=== PATIENT | male | born 1955 | race Caucasian/White ===

== ENCOUNTER 2021-04-25 09:06 | Emergency (ER) | payer BC, OTHER ==
[2021-04-25] MEDS ORDERED: Aspirin 81 MG Tab.Chew PO ONE (09:30)
[2021-04-25] MEDS ORDERED: Aspirin 81 MG Tab.Chew ONE (09:33)
[2021-04-25 09:59] LABS: ANION GAP 11.4 mEq/L (7-13); CHLORIDE,CL 98 mmol/L (98-107); SODIUM,NA 133 mmol/L (136-145)
[2021-04-25] MEDS ORDERED: Nitroglycerin 0.4 MG Tab.SL SL ONE (10:03)
--- NOTE | 2021-04-25 10:10 | EDM.PDOC ---
ED HPI GENERAL MEDICAL PROBLEM - General Chief Complaint: Chest Pain Stated Complaint: COVID + CHEST PAIN STINT PUT IN ON 13TH Time Seen by Provider: 04/25/21 09:45 Source of Information: Reports: Patient History Limitations: Reports: No Limitations - History of Present Illness INITIAL COMMENTS - FREE TEXT/NARRATIVE: This 66 yo male patient repots to the ED with chest pain that started this morning at about 0800. The patient describes his symptoms as a burning in the middle of his chest. The patient reports he tested positive for COVID on 04/21/21 and got monoclonal antibodies on 04/22/21. The patient also reports he had cardiac stents (2) placed by Dr. Mederos in [place] on 04/16/21. The patient did not take his prescribed nitro today due to coming to the ED. The patient reports he did take 1 baby aspirin today while at home. The patient also reports some mild tingling in his left arm. The patient reports he has eaten an apple today, but nothing else. Onset: Today Onset Date: 04/25/21 Onset Time: 08:00 Duration: Constant Location: Reports: Chest, Upper Extremity, Left Quality: Reports: Burning Severity: Moderate (6/10) Improves with: Reports: None Worsens with: Reports: None Context: Reports: Other Associated Symptoms: Reports: Chest Pain Treatments SVP OF DIGITAL: Reports: Aspirin (81 mg while at home) Mid-Sternal Chest Pain Score (Numeric/FACES): 6 - Related Data Allergies Allergy/AdvReac Type Severity Reaction Status Date / Time No Known Allergies Allergy Verified 04/22/21 11:31 Home Meds: Home Meds Acetaminophen 650 mg PO Q6HR PRN 10/15/17 [History] Nitroglycerin 0.4 mg PO ASDIRECTED PRN 10/15/17 [History] Aspirin [Aspirin EC] 81 mg PO DAILY 04/22/21 [History] Clopidogrel [Plavix] 75 mg PO DAILY 04/22/21 [History] Isosorbide Mononitrate [Imdur] 30 mg PO DAILY 04/22/21 [History] Metoprolol Succinate [Toprol Xl] 50 mg PO DAILY 04/22/21 [History] atorvaSTATin [Lipitor] 40 mg PO DAILY 04/22/21 [History] Past Medical History HEENT History: Reports: Hard of Hearing, Impaired Vision, Other (See Below) Cardiovascular History: Reports: High Cholesterol, Hypertension, AR, SOB on Exer tion, Stents Respiratory History: Reports: COPD, SOB Gastrointestinal History: Reports: None Genitourinary History: Reports: None Musculoskeletal History: Reports: Arthritis, Back Pain, Chronic, Fracture, Osteoarthritis Other Musculoskeletal History: fx right middle finger Neurological History: Reports: Concussion Psychiatric History: Reports: None Endocrine/Metabolic History: Reports: None Hematologic History: Reports: None Immunologic History: Reports: None Oncologic (Cancer) History: Reports: None Dermatologic History: Reports: None - Infectious Disease History Infectious Disease History: Reports: Novel Coronavirus - Past Surgical History Head Surgeries/Procedures: Reports: None HEENT Surgical History: Reports: Naso-Sinus Surgery Cardiovascular Surgical History: Reports: Coronary Artery Stent, Vascular Surgery Respiratory Surgical History: Reports: None GI Surgical History: Reports: Colonoscopy, EGD Male Surgical History: Reports: None Endocrine Surgical History: Reports: None Neurological Surgical History: Reports: None Musculoskeletal Surgical History: Reports: None Oncologic Surgical History: Reports: None Social & Family History - Family History Family Medical History: No Pertinent Family History - Tobacco Use Tobacco Use Status *Q: Unknown Ever Used Tobacco - Caffeine Use Caffeine Use: Reports: Coffee - Recreational Drug Use Recreational Drug Use: No ED ROS GENERAL - Review of Systems Review Of Systems: Comprehensive ROS is negative, except as noted in HPI. ED EXAM, GENERAL - Physical Exam Exam: See Below Exam Limited By: No Limitations General Appearance: Alert, WD/WN, Moderate Distress Eye Exam: Bilateral Eye: EOMI, Normal Inspection, PERRL Ears: Normal External Exam, Other (Bilateral hearing aids) Nose: Normal Inspection, Normal Mucosa, No Blood Throat/Mouth: Normal Inspection, Normal Lips, Normal Teeth, Normal Gums, Normal Oropharynx, Normal Voice, No Airway Compromise Head: Atraumatic, Normocephalic Neck: Normal Inspection, Supple, Non-Tender, Full Range of Motion Respiratory/Chest: No Respiratory Distress, Lungs Clear, Normal Breath Sounds, No Accessory Muscle Use, Chest Non-Tender Cardiovascular: Normal Peripheral Pulses, Regular Rate, Rhythm, No Edema, No Gallop, No JVD, No Murmur, No Rub GI/Abdominal: Normal Bowel Sounds, Soft, Non-Tender, No Organomegaly, No Distention, No Abnormal Bruit, No Mass (Male) Exam: Deferred Rectal (Males) Exam: Deferred Back Exam: Normal Inspection, Full Range of Motion, NT Extremities: Normal Inspection, Normal Range of Motion, Non-Tender, Normal Capillary Refill, No Pedal Edema Neurological: Alert, Oriented, CN II-XII Intact, Normal Cognition, Normal Gait, Normal Reflexes, No Motor/Sensory Deficits Psychiatric: Normal Affect, Normal Mood Skin Exam: Warm, Dry, Intact, Normal Color, No Rash Lymphatic: No Adenopathy #1 Interpretation EKG Date: 04/25/21 Time: 09:25 Rhythm: NSR Rate (Beats/Min): 60 [place]: Normal P-Wave: Present QRS: Normal QT: Normal Course - Vital Signs Last Recorded V/S: Last Vital Signs Temp 96.4 F L 04/25/21 09:50 Pulse 57 L 04/25/21 09:50 Resp 15 04/25/21 09:50 BP 133/86 04/25/21 10:10 Pulse Ox 97 04/25/21 09:50 - Orders/Labs/Meds Orders: Active Orders 24 hr Category Date Time Status Heparin Sodium/0.45% NaCl [Heparin 25,000 Units in 1/2 Med 04/25/21 11:14 Ordered NS 500 ML] 25,000 units in 500 ml IV ONETIME Medication Orders Heparin Sodium/Sodium Chloride (Heparin 25,000 Units In 1/2 Ns 500 Ml) 25,000 units in 500 mls @ 23.079 mls/hr IV ONETIME ONE Stop: 04/26/21 08:53 Labs: Laboratory Tests 04/25/21 04/25/21 04/25/21 Range/Units 09:25 09:25 09:25 WBC 7.6 (5.0-10.0) 10^3/uL RBC 5.27 (4.6-6.2) 10^6/uL Hgb 15.5 (14.0-18.0) g/dL Hct 45.4 (40.0-54.0) % MCV 86.1 D (80-100) fL MCH 29.4 (27.0-34.0) pg MCHC 34.1 (33.0-35.0) g/dL Plt Count 280 (150-450) 10^3/uL Neut % (Auto) 75.6 H (42.2-75.2) % Lymph % (Auto) 13.2 L (20.5-50.1) % [place] % (Auto) 10.3 H (2-8) % Eos % (Auto) 0.5 L (1.0-3.0) % Baso % (Auto) 0.4 (0.0-1.0) % D-Dimer, Quantitative 666 H (0-400) ng/mL Sodium 133 L (136-145) mmol/L Potassium 3.4 L (3.5-5.1) mmol/L Chloride 98 (98-107) mmol/L Carbon Dioxide 27 (21-32) mmol/L Anion Gap 11.4 (7-13) mEq/L BUN 14 (7-18) mg/dL Creatinine 1.01 (0.70-1.30) mg/dL Est Cr Clr Drug Dosing 70.54 mL/min Estimated GFR (MDRD) > 60 BUN/Creatinine Ratio 13.9 (No establ ref range) Glucose 129 H (70-99) mg/dL Lactic Acid (0.4-2.0) mmol/L Calcium 8.5 (8.5-10.1) mg/dL Total Bilirubin 0.6 (0.2-1.0) mg/dL AST 44 H (15-37) U/L ALT 53 (16-63) U/L Alkaline Phosphatase 66 (46-116) U/L Troponin I High Sens 160 H* (<=76) pg/mL Total Protein 7.3 (6.4-8.2) g/dL Albumin 3.2 L (3.4-5.0) g/dL Globulin 4.1 Albumin/Globulin Ratio 0.78 04/25/21 04/25/21 Range/Units 09:25 10:45 WBC (5.0-10.0) 10^3/uL RBC (4.6-6.2) 10^6/uL Hgb (14.0-18.0) g/dL Hct (40.0-54.0) % MCV (80-100) fL MCH (27.0-34.0) pg MCHC (33.0-35.0) g/dL Plt Count (150-450) 10^3/uL Neut % (Auto) (42.2-75.2) % Lymph % (Auto) (20.5-50.1) % [place] % (Auto) (2-8) % Eos % (Auto) (1.0-3.0) % Baso % (Auto) (0.0-1.0) % D-Dimer, Quantitative (0-400) ng/mL Sodium (136-145) mmol/L Potassium (3.5-5.1) mmol/L Chloride (98-107) mmol/L Carbon Dioxide (21-32) mmol/L Anion Gap (7-13) mEq/L BUN (7-18) mg/dL Creatinine (0.70-1.30) mg/dL Est Cr Clr Drug Dosing mL/min Estimated GFR (MDRD) BUN/Creatinine Ratio (No establ ref range) Glucose (70-99) mg/dL Lactic Acid 1.7 (0.4-2.0) mmol/L Calcium (8.5-10.1) mg/dL Total Bilirubin (0.2-1.0) mg/dL AST (15-37) U/L ALT (16-63) U/L Alkaline Phosphatase (46-116) U/L Troponin I High Sens 999 H* (<=76) pg/mL Total Protein (6.4-8.2) g/dL Albumin (3.4-5.0) g/dL Globulin Albumin/Globulin Ratio Meds: Medications Generic Name Dose Route Start Last Admin Trade Name Freq PRN Reason Stop Dose Admin Heparin Sodium/Sodium Chloride 25,000 units in 500 mls @ 23.079 mls/hr 04/25/21 11:14 Heparin 25,000 Units In 1/2 Ns 500 Ml IV 04/26/21 08:53 ONETIME ONE 12 UNITS/KG/HR Discontinued Medications Generic Name Dose Route Start Last Admin Trade Name Freq PRN Reason Stop Dose Admin Aspirin 243 mg 04/25/21 09:30 04/25/21 09:42 Aspirin 81 Mg Tab.Chew PO 04/25/21 09:31 243 mg ONETIME ONE Administration Aspirin Confirm 04/25/21 09:33 04/25/21 09:42 Aspirin 81 Mg Tab.Chew Administered 04/25/21 09:34 Not Given Dose 243 mg .ROUTE .STK-MED ONE Heparin Sodium (Porcine) 4,000 units 04/25/21 11:13 Heparin Sodium 5,000 Units/Ml Vial IVPUSH 04/25/21 11:14 .BOLUS ONE Morphine Sulfate 2 mg 11/22/21 10:15 04/25/21 10:20 Morphine 2 Mg/Ml Syringe IVPUSH 04/25/21 10:16 2 mg ONETIME ONE Administration Nitroglycerin 0.4 mg 04/25/21 10:03 04/25/21 10:10 Nitroglycerin 0.4 Mg Tab.Sl SL 04/25/21 10:04 0.4 mg ONETIME ONE Administration - Re-Assessments/Exams Free Text/Narrative Re-Assessment/Exam: 04/25/21 11:29 Initial call was placed to [facility] in [place] at 1021. Placed on hold until 1059 when advised Cardiology would return call. Return call received at 1108. Dr. Sandoval accepted the patient at 1115 for transport to the tutorial laboratory supervisor. Departure - Departure Time of Disposition: 11:26 Disposition: DC/Tfer to Acute Hospital 02 Reason for Transfer *Q: Other Condition: Serious Clinical Impression: NSTEMI (non-ST elevated myocardial infarction), Elevated troponin Forms: Interfacility Transfer EMTALA Care Plan Goals: Discussed the patient's history examination, lab, EKG and treatments with Dr. Sandoval (Cardology with [facility] in [place]). Dr. Sandoval accepted the patient for continued evaluation and management at [facility] in [place]. The patient will be transported by [facility]. Sepsis Event Note (ED) - Evaluation Sepsis Screening Result: No Definite Risk - Focused Exam Vital Signs: Vital Signs Temp Pulse Resp BP BP Pulse Ox 04/25/21 10:10 133/86 04/25/21 09:50 96.4 F L 57 L 15 147/88 H 97 - My Orders Last 24 Hours: My Active Orders 04/25/21 11:14 Heparin Sodium/0.45% NaCl [Heparin 25,000 Units in 1/2 NS 500 ML] 25,000 units in 500 ml IV ONETIME - Assessment/Plan Last 24 Hours: My Active Orders 04/25/21 11:14 Heparin Sodium/0.45% NaCl [Heparin 25,000 Units in 1/2 NS 500 ML] 25,000 units in 500 ml IV ONETIME
[2021-04-25] MEDS ORDERED: Morphine 2 MG/ML SYRINGE IVPUSH ONE (10:15)
[2021-04-25] MEDS ORDERED: Heparin Sodium 5,000 Units/ML Vial IVPUSH ONE (11:13)
[2021-04-25] MEDS ORDERED: Heparin Sodium/0.45% NaCl 25,000 UNITS/500 ML BAG IV ONE (11:14)
== END 2021-04-25 11:57 ==
LOC: DL.ED 09:06
DX: I21.4 Non-ST elevation (NSTEMI) myocardial infarction (principal); R79.89 Other specified abnormal findings of blood chemistry; E78.00 Pure hypercholesterolemia, unspecified; I10 Essential (primary) hypertension; I25.2 Old myocardial infarction; J44.9 Chronic obstructive pulmonary disease, unspecified; M19.90 Unspecified osteoarthritis, unspecified site; Z95.5 Presence of coronary angioplasty implant and graft; Z79.82 Long term (current) use of aspirin; Z79.02 Long term (current) use of antithrombotics/antiplatelets; Z79.899 Other long term (current) drug therapy
CPT/HCPCS: 36415; 80053; 83605; 84484; 85025; 85379; 93005; 96365; 96375; 99285; A9270; J1644; J2270

== ENCOUNTER 2023-07-27 05:18 | Day surgery (SDC) | payer MEDICARE ==
[2023-07-27] MEDS: Dextrose 5%-0.45% NaCl 1,000 ML IV SCH (05:50)
[2023-07-27] MEDS ORDERED: fentaNYL 100 MCG/2 ML SDV ONE (06:06)
[2023-07-27] MEDS ORDERED: Midazolam 1 MG/ML 2 ML SDV ONE (06:06)
[2023-07-27] MEDS: fentaNYL 100 MCG/2 ML SDV IV ONE ×2 (06:29→06:30)
[2023-07-27] MEDS: Midazolam 1 MG/ML 2 ML SDV IV ONE ×6 (06:30→07:09)
== END 2023-07-27 08:39 | disposition home or self-care (01) ==
LOC: DL.ENDO 05:18
PROVIDERS: ATTEND Internal Medicine Gastroenterology
DX: D12.4 Benign neoplasm of descending colon (principal); K57.30 Diverticulosis of large intestine without perforation or abscess without bleeding; K62.5 Hemorrhage of anus and rectum; I25.10 Atherosclerotic heart disease of native coronary artery without angina pectoris; E78.00 Pure hypercholesterolemia, unspecified; Z95.5 Presence of coronary angioplasty implant and graft
CPT/HCPCS: 88305; J2250; J3010; J7042

== ENCOUNTER 2023-07-28 10:00 | Emergency (ER) | payer MEDICARE ==
[2023-07-28 10:23] LABS: BASOPHILS PERCENT AUTO 0.5 % (0.0-1.0); HEMATOCRIT 39.7 % (40.0-54.0); HEMOGLOBIN 13.5 g/dL (14.0-18.0); LYMPHOCYTES PERCENT AUTO 20.6 % (20.5-50.1); MEAN CORPUSCULAR HEMOGLOBIN 30.6 pg (27.0-34.0); MONOCYTES PERCENT AUTO 7.7 % (2-8); NEUTROPHILS PERCENT AUTO 69.2 % (42.2-75.2); PLATELET COUNT,PLT 283 10^3/uL (150-450); RED BLOOD CELL COUNT 4.41 10^6/uL (4.6-6.2); WHITE BLOOD CELL COUNT,WBC 7.9 10^3/uL (5.0-10.0)
== END 2023-07-28 10:46 | disposition home or self-care (01) ==
LOC: DL.ED 10:00
DX: K62.5 Hemorrhage of anus and rectum (principal); E78.00 Pure hypercholesterolemia, unspecified; I25.2 Old myocardial infarction; M19.90 Unspecified osteoarthritis, unspecified site; Z79.82 Long term (current) use of aspirin; Z95.5 Presence of coronary angioplasty implant and graft; Z86.16 Personal history of COVID-19; Z79.899 Other long term (current) drug therapy
CPT/HCPCS: 36415; 85025; 99283